=== PATIENT | female | born 1980 | race Hispanic/Latino ===

== ENCOUNTER 2016-09-20 11:16 | Emergency (ER) | payer SELFPAY ==
[2016-09-20 12:09] VITALS: RESP 18; TEMP 97.7
--- NOTE | 2016-09-20 19:35 | PDOC ---
Upper Extremity Problem HPI - General Chief Complaint: Upper Extremity Problem/Injury Stated Complaint: pain, numbness right upper extremity Date Seen by Provider: 09/20/16 Time Seen by Provider: 11:35 Source: POSITIVE: Patient, Other (Patient's son) Exam Limitations: POSITIVE: Language barrier (Macedonian is patient's second language; son helped to interpret.) Nurse's Notes Reviewed & Considered: Yes - History of Present Illness Initial Comments: The patient is a 34-year-old female. Patient states that for the past week, approximately, she has had some pain and numbness in her right hand and forearm , predominantly in the right third and fourth fingers. She also complains of some discomfort over the right paracervical area. She works as a real estate valuer. She states she's not had any trauma. No known allergies. She is presently on no medications. Body Location Affected: REPORTS: Upper Extremity (R) (As above) Timing: REPORTS: Intermittent Duration: <1 week (Approximately one week) Severity: Moderate Quality: REPORTS: "Pain", Other (Numbness) Recent Injury: REPORTS: No Context of Injury: DENIES: Fall, Twist, Direct Blow, Incision, Burn, Crush, Stab , Prolonged Pressure on Ext, Other Location at Time of Onset: REPORTS: Home Modifying Factors: DENIES: Nothing Exacerbates, Exertion, Movement, Rest, Ice, Positioning, Nothing Relieves, Other Associated Symptoms: DENIES: Fever, Chills, Diaphoresis, Shortness of Breath, Difficulty Breathing, Chest Pain, Chest Discomfort, Nausea, Vomiting, Neck Pain , Jaw Pain, Back Pain, See Diagram, Other Similar Symptoms Previously: No Recent Care Received: Denies Any Prior Injuries Related to Current Complaint?: No - Patient Home Medications Home Medications: Home Medications Naproxen [Naprosyn] 500 mg PO Q12H #20 tab 09/20/16 - Patient Allergies Allergies/Adverse Reactions: Allergies Allergy/AdvReac Type Severity Reaction Status Date / Time No Known Allergies Allergy Verified 09/20/16 11:50 Past Medical History - heen HEENT History: Denies History Cardiovascular History: Denies History Respiratory History: Other (please comment) Additional Respiratory History: allergic asthma Gastrointestinal History: Denies History Genitourinary History: Denies History Endocrine History: Denies History Musculoskeletal History: Denies History Neurological History: Denies History Blood Disorders: Denies History Psychiatric History: Denies History Female Reproductive History: Denies History Obstetrical History: Denies History Cancer History: Denies History In Past Year Been Physically Harmed or Verbally Threatened: No History of MDRO: Unknown Tobacco Use: Never Smoker Alcohol Use: None Substance Use Type: None Previous Surgical History: No Significant Family History: No pertinent family hx Past Medical History Reviewed: Reviewed - No Changes ROS - Limitations ROS Limitations: No Limitations Constitution: REPORTS: Denies Symptoms Cardiovascular: REPORTS: Denies Cardiac Symptoms Respiratory: REPORTS: Denies Resp Symptoms Neurological: REPORTS: Numbness (Right third and fourth fingers). DENIES: Confusion, Headache, Dizziness, Tingling, Fainting, Difficulty Walking, Seizure Activity, Facial Asymmetry, Dysphagia, Weakness Gastrointestinal: REPORTS: Denies GI Symptoms Endocrine: REPORTS: Denies Symptoms Musculoskeletal: REPORTS: Neck Pain (Some discomfort right paracervical area) Genitourinary: REPORTS: Denies Symptoms Eyes: REPORTS: Denies Symptoms ENT: REPORTS: Denies Symptoms Skin: REPORTS: Denies Skin Symptoms Lympathic: REPORTS: Denies Lympathic Symptoms Immunologic: POSITIVE: Denies Symptoms Psychiatric: POSITIVE: Denies Psych Symptoms Upper Extremity Problem Exam - General Appearance General Appearance: POSITIVE: Alert, Cooperative, No Acute Distress, No Evidence of Trauma - Upper Extremity Upper Extremity: POSITIVE: Normal Inspection, No Edema, Normal ROM, Joints Normal, Tenderness (Some discomfort voiced on palpation over olecranon and mid wrist, volar aspect.), See Diagram. NEGATIVE: Swelling, Limited Active ROM, Limited Passive ROM, Limited Functional ROM, Limited ROM d/t Pain, Axillary Lymphadenopathy, Positive Ajay Test, Joint Swelling, Joint Effusion Vascular: POSITIVE: No Vascular Compromise, Full Pulses, Equal Pulses - Skin Skin: POSITIVE: Normal Color, Warm, Dry, No Rash - Neuro / Psych Peripheral Neuro Exam: POSITIVE: Sensation Normal, Motor Normal Central Neuro Exam: POSITIVE: Oriented to Person, Oriented to Place, Oriented to Time, CN's Normal as Tested, Normal Speech, Normal Cognition, Appropriate Mood, Appropriate Affect - HEENT HEENT: POSITIVE: Head Inspection Nml, Eyes Inspection Nml, Ears Inspection Nml, Nose Inspection Nml, Oral/Dental Inspect. Nml, Pharynx Inspect. Nml, PERRL, EOMI - Neck/Back Neck / Back: POSITIVE: Normal Inspection, Other (Some discomfort on firm palpation right para cervical musculature. Positive para foraminal compression test on right.). NEGATIVE: Thyromegaly, Cervical Lymphadenopathy, Neck Tenderness - Respiratory / CVS Respiratory / CVS: POSITIVE: No Respiratory Distress, Breath Sounds Normal, Regular Rate & Rhythm, Heart Sounds Normal Peripheral Pulses: Brachial (R): 2+, Brachial (L): 2+, Radial (R): 2+, Radial (L ): 2+ - Abdomen Abdomen: Soft: (All Quadrants), Normal Bowel Sounds: (All Quadrants), Denies Tenderness: (All Quadrants), No Splenomegaly: (All Quadrants), No Hepatomegaly: (All Quadrants), No Guarding: (All Quadrants), No Rebound: (All Quadrants), No Palpable Pulse: (All Quadrants), No Palpabale Mass: (All Quadrants), No Distention: (All Quadrants), No Rigidity: (All Quadrants) Images - Upper Extremities Upper Extremities: 1 - Some discomfort on palpation voiced 2 - Some discomfort on palpation placed Upper Ext Problem Progress - Patient's Progress Pain Medication Addressed: POSITIVE: Yes (Naprosyn, 500 mg every 12 hours.) School/Work Release Addressed: POSITIVE: Not Applicable Re-Examine Time:: 11:55 Status: POSITIVE: Unchanged - Consult Counseled: POSITIVE: Patient, Family, RE: DX, RE: Need for F/U Patient Care Time - Estimated PCT Patient Care Time (In Minutes): 20 Vital Signs - VS Reviewed Vital Signs Reviewed: Yes Discharge Clinical Impression: Cervical radiculopathy at C7 Discharge Disposition: Discharged to Home Condition: Stable Prescriptions / Orders: Naproxen [Naprosyn] 500 mg PO Q12H #20 tab Patient Instructions Given at Discharge: Cervical Radiculopathy (ED) Print Language: DANISH Additional Instructions: Warm moist compresses to neck. Naprosyn, one every 12 hours for 10 days. Follow-up with your primary care provider in 10 days; if condition is not improved by that time you may need an MRI of your neck. Return here anytime if condition worsens. Follow Up With: NONE,NONE [Primary Care Provider] - (Instructions as above. Follow-up with your primary care provider. Return here anytime if condition worsens.)
== END 2016-09-20 12:12 | disposition home or self-care (01) ==
LOC: ER 11:16
DX: M54.12 Radiculopathy, cervical region (principal); R20.0 Anesthesia of skin
CPT/HCPCS: 99282